=== PATIENT | female | born 1955 | race Caucasian/White ===

== ENCOUNTER → 2023-10-12 06:27 | Day surgery (SDC) | payer MEDICARE, OTHER, SELFPAY | LOC: GI 06:27 | PROVIDERS: ATTENDING PHYSICIAN Surgery | DX: Z12.11 Encounter for screening for malignant neoplasm of colon (principal); R19.5 Other fecal abnormalities; Z86.010 Personal history of colon polyps; K57.30 Diverticulosis of large intestine without perforation or abscess without bleeding; D12.3 Benign neoplasm of transverse colon | CPT/HCPCS: 45385; 88305 ==

== ENCOUNTER → 2024-06-02 14:29 | Outpatient (REF) | payer MEDICARE, OTHER, SELFPAY | LOC: WDC 14:29 | PROVIDERS: ATTENDING PHYSICIAN Physician Assistant Medical | DX: Z12.31 Encounter for screening mammogram for malignant neoplasm of breast (principal) | CPT/HCPCS: 77063; 77067 ==

== ENCOUNTER → 2024-09-25 12:49 | Outpatient (REF) | payer MEDICARE, OTHER, SELFPAY | LOC: WDC 12:49 | PROVIDERS: ATTENDING PHYSICIAN Physician Assistant Medical | DX: R92.2 Inconclusive mammogram (principal); R92.30 Dense breasts, unspecified | CPT/HCPCS: 76641 ==

== ENCOUNTER → 2025-05-21 12:32 | Outpatient (REF) | payer MEDICARE, OTHER, SELFPAY | LOC: HWRCS 12:32 | PROVIDERS: ATTENDING PHYSICIAN Internal Medicine Cardiovascular Disease; FAMILY PHYSICIAN Physician Assistant Medical | DX: R07.89 Other chest pain (principal); R06.02 Shortness of breath; I10 Essential (primary) hypertension; Z82.49 Family history of ischemic heart disease and other diseases of the circulatory system | CPT/HCPCS: 78452; 93017; A9500 ==

== ENCOUNTER → 2025-05-27 12:15 | Outpatient (REF) | payer MEDICARE, OTHER, SELFPAY | LOC: RAD 12:15 | PROVIDERS: ATTENDING PHYSICIAN Physician Assistant; FAMILY PHYSICIAN Physician Assistant Medical | DX: M81.0 Age-related osteoporosis without current pathological fracture (principal) | CPT/HCPCS: 77080 ==

== ENCOUNTER 2025-06-15 11:24 | Emergency (ER) | payer MEDICARE, OTHER, SELFPAY ==
[2025-06-15 11:28] VITALS: BP 148/102
[2025-06-15 12:07] VITALS: BP 149/85
[2025-06-15 13:00] VITALS: BP 145/90
[2025-06-15 13:32] LABS: Hematocrit 40.2 % (37.0-47.0); Hemoglobin 13.9 g/dL (12.0-16.0); Mean Corp Hgb Conc. 34.6 g/dL (33.0-37.0); Mean Corpuscular Volume 93.9 fL (81.0-99.0); Nucleated Red Blood Cells % 0 %; Platelet Count 204 10^3/uL (130-400); Red Cell Dist. Width 11.9 % (11.5-14.5)
[2025-06-15 13:52] LABS: ALT (SGPT) 24 U/L (0-35); AST (SGOT) 32 U/L (14-36); Albumin 4.0 g/dl (3.5-5.0); Alkaline Phosphatase 37 U/L (38-126); Blood Urea Nitrogen 14 mg/dl (7-17); Calcium 9.2 mg/dl (8.4-10.2); Carbon Dioxide 27 mmol/L (22-30); Chloride 96 mmol/L (98-107); Glucose 91 mg/dl (70-99); Magnesium 2.0 mg/dl (1.6-2.3); Potassium 4.4 mmol/L (3.5-5.1); Sodium 126 mmol/L (135-145); Total Protein 6.9 g/dl (6.3-8.2); eGFR > 60.00
[2025-06-15 13:57] LABS: Troponin I < 0.012 ng/ml
[2025-06-15 14:00] VITALS: BP 155/82
[2025-06-15] MEDS: NSS 500 IV (14:12)
[2025-06-15 15:00] VITALS: BP 146/91
--- NOTE | 2025-06-15 15:39 | ED.GENMED ---
History of Present Illness
General
Chief Complaint: Dizziness
Source: patient and family
Exam Limitations: none
Time Seen by Provider: 06/15/25 13:00
History of Present Illness
History of Present Illness:
Note:
CHIEF COMPLAINT(S)
Intermittent lightheadedness and awareness of heartbeats for about a week.
HISTORY OF PRESENT ILLNESS
The patient is a 70-year-old female with a recent history of atrial fibrillation who presents with symptoms of intermittent lightheadedness that began approximately one week ago while sitting on the couch. The patient reports that these episodes
last a short duration but leave her feeling fatigued and unwell. She also experiences intermittent palpitations and a transient sensation of nausea. The patient denies any chest pain but notes an increased awareness of her heartbeats.
She was initially diagnosed with atrial fibrillation during a stress test conducted by her conservation policy analyst. Prior to this, she experienced episodic symptoms without a formal diagnosis. Cardiology is considering an ablation scheduled for July 10.
The current medication regime includes dabigatran, metoprolol, and lisinopril.
PAST MEDICAL AND SURGICAL HISTORY
Atrial fibrillation confirmed by cardiology.
Hypertension
PLANS
1. Conduct laboratory tests to evaluate hemoglobin levels, kidney function, and electrolyte balance, especially with the patient being on blood thinners.
2. Review previous Holter monitor results to investigate any correlations between symptoms and atrial fibrillation episodes.
3. Monitor the patient closely while in the facility for any signs of returning to atrial fibrillation.
4. Discuss the possibility of continuous monitoring options like Apple Watch or Holter monitor given the current intermittent symptoms.
5. Plan to follow up with cardiology regarding the upcoming ablation.
PHYSICAL EXAM
General: Alert, no acute distress.
Skin: Warm, dry.
Head: Normocephalic, atraumatic.
Neck: Supple, trachea midline.
Eye, Ears, Nose, Mouth and Throat: Oral mucosa moist.
Cardiovascular: Regular rhythm without murmurs, no jugular venous distention, lower extremity without edema.
Respiratory: Respirations non-labored, lung auscultation clear.
Gastrointestinal: Abdomen nondistended.
Back: Normal range of motion, normal alignment.
Musculoskeletal: Normal range of motion, normal strength.
Neurological: Alert and oriented to person, place, time, and situation, no focal neurological deficit observed.
Psychiatric: Cooperative, appropriate mood & affect.
PROBLEM LIST
Acute:
- Intermittent lightheadedness and palpitations.
- Awareness of heartbeat without pain.
-Uncontrolled hypertension
Chronic:
- Atrial fibrillation.
DIFFERENTIAL DIAGNOSIS
The Differential Diagnosis includes, in no particular order and is not limited to:
1. Atrial fibrillation
2. Transient ischemic attack
3. Orthostatic hypotension
4. Syncope
5. Anxiety or panic disorder
6. Dehydration
7. Arrhythmias other than atrial fibrillation
8. Electrolyte imbalance
9. Anemia
10. Stimulant use or side effect of medication.
EKG
My independent EKG interpretation is:
- Rhythm: Normal sinus rhythm
- Heart Rate: 64 beats per minute
- [place]: Normal
- Intervals: Normal NV interval, QRS duration, and QT interval
- Abnormalities: No acute changes, no ST segment changes, T wave inversions, or arrhythmias noted
CONSTITUTIONAL Patient alert and oriented to person, place and time. Well-appearing. Vital signs reviewed.
HEAD atraumatic, normocephalic.
EYES eyelids normal to inspection, Extraocular muscles intact, Conjunctiva normal, Sclera normal.
NECK normal range of motion, Trachea midline, no jugular venous distention.
RESPIRATORY CHEST No respiratory distress noted, Chest expansion equal, Bilateral breath sounds clear.
CARDIOVASCULAR regular rate and rhythm, Heart sounds normal.
ABDOMEN abdomen nontender, Bowel sounds normal. No distention.
BACK normal inspection, no obvious deformities
UPPER EXTREMITY range of motion normal, Motor strength normal, no cyanosis, no edema.
LOWER EXTREMITY range of motion normal, Motor strength normal, no cyanosis, no edema.
NEURO Speech normal, No focal motor deficits, [place] coma scale 15, Memory normal, Cranial Nerves intact to screening exam.
SKIN skin warm, dry, and normal in color.
Disposition:
SUMMARY OF ENCOUNTER
The patient, a 70-year-old female with a recent history of atrial fibrillation, was seen in the emergency department due to intermittent lightheadedness and awareness of heartbeats. She received IV fluids which resolved her symptoms. Upon
evaluation, a mild hyponatremia (sodium level at 126) was noted, possibly due to volume depletion as she reported low fluid intake. Telemetry monitoring showed no evidence of atrial fibrillation or ventricular dysrhythmia. The patient is under a
full cardiac workup by cardiology.
DISPOSITION
Discharge.
ASSESSMENT
Mild hyponatremia likely secondary to volume depletion; symptom resolution upon IV fluid administration.
PLAN
Recommend outpatient follow-up with repeat laboratory tests in one week to reassess sodium levels. The patient agrees to continue follow-up with her conservation policy analyst to complete the cardiac workup.
PATIENT EDUCATION AND COUNSELING
The patient was advised regarding the importance of adequate fluid intake and was informed about the plan to follow up with repeat labs to monitor sodium levels. She was also counseled to continue her cardiac workup with her conservation policy analyst.
FOLLOW-UP INSTRUCTIONS
Please call the office immediately to schedule a follow-up visit in one week for repeat sodium testing. Continue care with cardiology as scheduled.
MEDICATION RECONCILIATION
1. Apixaban (Eliquis).
2. Metoprolol.
MEDICAL DECISION MAKING
- Complexity of Data Reviewed: Chronic conditions affecting care include atrial fibrillation. Differential diagnosis included:
1. Atrial fibrillation
2. Transient ischemic attack
3. Orthostatic hypotension
4. Syncope
5. Anxiety or panic disorder
6. Dehydration
7. Arrhythmias other than atrial fibrillation
8. Electrolyte imbalance (notably hyponatremia)
9. Anemia
10. Stimulant use or side effect of medication.
- Data:
Category 1:
My independent interpretation of telemetry monitoring showed no evidence of ventricular dysrhythmia or atrial fibrillation during the visit.
- Risk:
Prescription medication management reviewed (Apixaban, Metoprolol). The decision was made to discharge the patient safely with outpatient management due to symptom resolution post-IV fluids, reassurance from clinical assessments, stable vitals, and
the patients ability to follow-up reliably.
DIAGNOSIS
1. Mild Hyponatremia (ICD-10: E87.1).
2. Dehydration
3. Uncontrolled hypertension
Past History
Past History
ED Past Medical History: None
Social History
Tobacco: Non-smoker
Phy Exam
Physical Exam
Physical Exam:
.
Course
Orders/Labs/Results
Orders:
Orders
06/15/25 11:24
EKG [Electrocardiogram (*1)] Urgent
Reason for Study: Atrial Fibrillation
06/15/25 11:25
EKG- Treatment ONCE
06/15/25 13:25
Complete Blood Count/With Diff Urgent
Comprehensive Metabolic Panel Urgent
Magnesium Urgent
TSH Reflex To Free T4 Urgent
Troponin I Urgent
06/15/25 14:04
0.9% Sodium Chloride 500 ml [Nss] 500 ml IV BOLUS
06/15/25 15:40
Vital Signs- Treatment ONCE
Frequency: Once
Abnormal Lab Results
06/15/25
13:25
MCH 32.5 H pg
(27.0-31.0)
Absolute Lymphs (auto) 1.0 L 10^3/uL
(1.2-3.4)
Lymphocytes % 20.0 L %
(20.5-51.1)
Monocytes % 11.9 H %
(1.7-9.3)
Sodium 126 L mmol/L
(135-145)
Chloride 96 L mmol/L
(98-107)
Alkaline Phosphatase 37 L U/L
(38-126)
06/15/25 13:25
06/15/25 13:25
Vital Signs
Initial and Last Documented VS:
Initial Vital Signs
Temp Pulse Resp BP Pulse Ox
98.2 F 68 18 148/102 98
06/15/25 11:28 06/15/25 11:28 06/15/25 11:28 06/15/25 11:28 06/15/25 11:28
Last Documented Vital Signs
Temp Pulse Resp BP Pulse Ox
98.2 F 58 13 146/91 100
06/15/25 11:28 06/15/25 15:30 06/15/25 15:30 06/15/25 15:00 06/15/25 15:40
*Pulse Oximetry
SaO2: 100
Oxygen Mode of Delivery: Room air
Patient hypoxic: no
*Critical Care Note
Total Time (30-74mins, 75-104mins- exclusive of procedures): Not Applicable
ED Attending Note
-
Portions of this chart may have been created with voice recognition software.� Occasional wrong word or��sound alike� substitutions may have occurred due to the inherent limitations of voice recognition software.
Discharge Plan
Departure
Patient Disposition: Home (Routine Discharge)
Date of Disposition: 06/15/25
Time of Disposition: 15:40
Patient with high blood pressure during this ER visit?: No
Discharge Problem:
Dizziness, Acute hyponatremia
Instructions: Dehydration in adults - ED (DC), Dizziness
Prescriptions:
No Action
No Current Medications
0
Referrals:
Yessi Jorge PA-C [Family Provider, Family Practice]
Activity Restrictions/Additional Instructions:
Please drink plenty fluids discussed and have your labs repeated in the next 1 week. Return immediately for chest pain, palpitations, weakness of any kind or any other concerns. Your sodium was noted to be low today. Please have your doctor
follow-up on repeat laboratory studies to ensure that the labs have improved and your sodium has improved. Please follow-up with cardiology as planned
Interventions
Interventions:
*Risk Screen - Suicide Last Done: 06/15/25 11:28
*General Assessment Last Done: 06/15/25 11:28
*Neglect/Abuse Screening Last Done: 06/15/25 12:05
*ED- Fall Risk Assessment Last Done: 06/15/25 13:32
*ED COVID-19 Vaccine History Last Done: 06/15/25 11:28
*ED Influenza Vaccine History Last Done: 06/15/25 11:28
ED- Neurological Assessment Last Done: 06/15/25 13:31
ED Swallowing Screen Last Done: 06/15/25 13:31
Discharge Date and Time
Print Language: GIBRALTARIAN
== END 2025-06-15 15:52 | disposition home or self-care (01) ==
LOC: EMR 11:24
PROVIDERS: EMERGENCY PHYSICIAN Emergency Medicine; FAMILY PHYSICIAN Physician Assistant Medical
DX: R42 Dizziness and giddiness (principal); E87.1 Hypo-osmolality and hyponatremia; I48.91 Unspecified atrial fibrillation; I10 Essential (primary) hypertension; Z79.01 Long term (current) use of anticoagulants
CPT/HCPCS: 99284; 80053; 83735; 84443; 84484; 85025; 93005

== ENCOUNTER → 2025-06-19 11:12 | Outpatient (REF) | payer MEDICARE, OTHER, SELFPAY | LOC: RCS 11:12 | PROVIDERS: ATTENDING PHYSICIAN Internal Medicine Cardiovascular Disease; FAMILY PHYSICIAN Physician Assistant Medical | DX: R07.89 Other chest pain (principal); R06.02 Shortness of breath; I10 Essential (primary) hypertension; Z82.49 Family history of ischemic heart disease and other diseases of the circulatory system | CPT/HCPCS: 93306 ==